=== PATIENT | female | born 1960 | race Caucasian/White ===

== ENCOUNTER 2020-08-31 15:21 | Emergency (ER) | payer OTHER, SELFPAY ==
--- NOTE | ~2020-08-31 | CT_ITS ---
EXAMINATION: CT brain wo con EXAM DATE: 08/31/2020 17:13 INDICATION: Fall, head injury. TECHNIQUE: Spiral CT of the head was performed without contrast. Axial, coronal and sagittal images were reviewed. The dose-length product (DLP) for this examination was 605.33 mGy-cm. The exposure w as tailored according to patient size, and iterative reconstruction (ASIR) was used as additional dos e reduction technique. Comparison is made to prior examination from 04/11/2010. FINDINGS: There is no acute intraparenchymal hemorrhage. No evidence of intraparenchymal brain mass lesion. No evidence of acute infarction. There is no mass effect or midline shift. The ventricles are normal in size. There are no extra-axial collections. There are no acute calvarial fractures. T he orbits are unremarkable. Right supraorbital scalp contusion. The visualized sinuses and mastoid a ir cells are well aerated. IMPRESSION: 1. No acute intracranial findings. 2. Right proximal scalp contusion. Reviewed, dictated and finalized at location A.
--- NOTE | ~2020-08-31 | CT_ITS ---
EXAMINATION: CT facial & cervical spine wo EXAM DATE: 08/31/2020 17:13 INDICATION: Head injury. TECHNIQUE: Spiral CT of the facial bones was acquired in the axial plane. Coronal reformatted images were also reviewed. Spiral CT of the cervical spine was performed without contrast. Axial images we re reviewed. Coronal and sagittal reformatted images were also reviewed. The dose-length product (DL P) for this examination was 419.19 mGy-cm. The exposure was tailored according to patient size, and iterative reconstruction (ASIR) was used as additional dose reduction technique. There is no prior s tudy for comparison. FINDINGS: FACIAL CT: There is left supraorbital, brow contusion, soft tissue swelling. There are no displaced a cute nasal bone fractures. The mandible, sinuses and orbits are intact. The orbits, globes and extr aocular muscles are unremarkable. The visualized sinuses and mastoid air cells are well aerated. 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 There is no evidence of acute c ervical fracture. The odontoid process is intact. Pre-dens space is normal. Prevertebral soft tiss ue is normal. There are no soft tissue abnormalities identified. There is no disc space widening or traumatic vertebral body subluxation suspected. There is significant lower cervical uncovertebral j oint arthropathy causing significant neural foraminal stenosis. Moderate lower cervical disc disease. A detailed level by level evaluation of spondylosis can be added as addendum if requested. IMPRESSION: 1. No acute facial or cervical fracture. 2. Advanced cervical arthropathy. Reviewed, dictated and finalized at location A.
[2020-08-31 15:29] VITALS: BP 149/83; PULSE 72; RESP 20; TEMP 36.7; O2SAT 99
--- NOTE | 2020-08-31 16:30 | ED.HEATRA ---
HPI - Head Injury General Chief complaint: Head Injury Stated complaint: FALL, FACIAL TRAUMA. LOC Time Seen by Provider: 08/31/20 16:05 Source: patient Mode of arrival: ambulatory Limitations: no limitations History of Present Illness HPI Narrative: Patient is a 60-year-old female who presents after trip and fall hitting head on concrete with possible LOC. Patient reports she was leaving PCP office when she tripped and fell in parking lot. She refused EMS as she reports having to get child with leukemia at home. She has edema and abrasion to left orbital area. Vision intact. She is reporting pain of 8/10. She denies taking caoz-ebw-ujshmbs pain medication. She denies being on blood thinners. Complaint: head injury Related Data Allergies Allergy/AdvReac Type Severity Reaction Status Date / Time codeine Allergy Mild Hives Verified 08/31/20 16:52 morphine Allergy Mild Hives Verified 08/31/20 16:52 Review of Systems Review of Systems: Narrative: CONSTITUTIONAL: Denies fever, chills, or sweats. EYES: Denies visual changes, redness, or discharge. Reports swelling to left orbital area ENT: Denies rhinorrhea, congestion, sore throat, or otalgia. CARDIOVASCULAR: Denies chest pain, palpitations, or edema. RESPIRATORY: Denies cough or dyspnea. GASTROINTESTINAL: Denies abdominal pain, nausea, vomiting, or diarrhea. GENITOURINARY: Denies dysuria or hematuria. SKIN: Abrasion to left orbital area MUSCULOSKELETAL: Denies back pain, joint pain, or myalgia. NEUROLOGIC: Reports headache, denies numbness, dizziness, or weakness. PSYCHIATRIC: Denies anxiety or depression. Exam Narrative: Exam Narrative: GENERAL: Well-appearing, well-nourished, and in no acute distress. HEAD: Normocephalic. EYES: No redness or drainage. Conjunctiva are normal. Edema, ecchymosis and abrasion to left orbital area. Tenderness with palpation to left orbital area. ENT: Mucous membranes pink and moist. Nares clear. No rhinorrhea. TMs normal bilaterally. Throat normal. Uvula midline. NECK: AROM. Supple. No lymphadenopathy. CHEST: No respiratory distress. Clear to auscultation. HEART: Regular rate and rhythm. No murmur appreciated. Normal peripheral pulses. EXTREMITIES: Normal range of motion. No edema. SKIN: Warm, dry, no rash. NEURO: No focal deficits. Alert and oriented x3. Gait steady. PSYCH: Normal affect. No signs of depression or anxiety. Course Vital Signs Vital signs: Vital Signs Temperature 36.7 C 08/31/20 15:29 Pulse Rate 72 08/31/20 15:29 Respiratory Rate 20 08/31/20 15:29 Blood Pressure 149/83 H 08/31/20 15:29 Pulse Oximetry 99 08/31/20 15:29 Temperature 36.7 C 08/31/20 15:29 Pulse Rate 72 08/31/20 15:29 Respiratory Rate 20 08/31/20 15:29 Blood Pressure 149/83 H 08/31/20 15:29 Pulse Oximetry 99 08/31/20 15:29 MDM - Head Injury MDM Narrative Medical decision making narrative: Patient CT negative for fracture or hemorrhage. Discussed with patient all soft tissue swelling, ice and xusw-juw-uvqmeqi pain relievers. Patient is stable for discharge home with outpatient follow-up. Differential Diagnosis Differential diagnosis: Likely concussion without loss of consciousness, closed head injury and other Critical Care Time Critical Care Time Critical Care Time: No Discharge Plan Discharge Clinical Impression: Fall, Contusion of face, Abrasion head Patient Disposition: Home, Self-Care Condition: Stable Instructions: Antibiotic Form, Black Eye (ED), Head Injury (ED) Additional Instructions: You may take Tylenol or ibuprofen for pain. Ice as needed to left eye decreased swelling. Follow-up with your PCP in 3 to 5 days as needed. If you experience increased headache, dizziness, visual disturbances, chest pain or shortness of breath, please return return to the emergency department for further evaluation. Follow-up/Referrals: Chivo,QUINTON Miranda [Primary Care Provider] - Time of Dispos
[2020-08-31] MEDS: ONDANSETRON INJ 4 MG/2 ML VIAL IV PUSH (16:44)
== END 2020-08-31 18:10 | disposition home or self-care (01) ==
PROVIDERS: Emergency Provider Nurse Practitioner; PCP Nurse Practitioner Adult Health
DX: S00.12XA Contusion of left eyelid and periocular area, initial encounter (principal); S00.91XA Abrasion of unspecified part of head, initial encounter; W01.0XXA Fall on same level from slipping, tripping and stumbling without subsequent striking against object, initial encounter
CPT/HCPCS: 70450; 70486; 72125; 96374; 96375; 99284; J0131; J2405